=== PATIENT | male | born 2000 | race Caucasian/White ===

== ENCOUNTER 2020-04-20 11:05 | Emergency (ER) | payer BC ==
[~2020-04-20] VITALS: Ht 170.2 cm; Wt 79.4 kg
[2020-04-20 11:17] VITALS: Ht 170.2 cm; Wt 79.4 kg
[2020-04-20 19:36] VITALS: BP 122/78
== END 2020-04-20 19:36 | disposition home or self-care (01) ==
LOC: ED 11:05
DX: T40.601A Poisoning by unspecified narcotics, accidental (unintentional), initial encounter (principal); Y92.89 Other specified places as the place of occurrence of the external cause